=== PATIENT | female | born 1970 | race Caucasian/White ===

== ENCOUNTER → 2020-01-26 | Outpatient (CLI) | payer BC ==
[~2020-01-26] MED LIST: ANTIVERT25 MG PO; NKHM; Zofran4 MG PO
[2020-01-26 09:33] LABS: BASO % 0.3 % (0.0-1.0); EOS # 0.2 10*3/uL (0.0-0.4); EOS % 2.7 % (1.0-4.0); HEMATOCRIT 43.2 % (37.0-47.0); LYMPH % 30.2 % (27.0-41.0); MEAN CELL VOLUME 94.7 fl (81.0-99.0); MEAN CORPUSCULAR HGB 31.8 pg (27.0-31.0); MEAN CORPUSCULAR HGB CONC 33.6 g/dl (33.0-37.0); MEAN PLATELET VOLUME 10.2 fl (9.6-12.3); MONO # 0.4 10*3/uL (0.1-1.0); MONO % 5.6 % (3.0-9.0); PLATELET COUNT AUTOMATED 342 10*3/uL (130-400); RED BLOOD COUNT 4.56 10*6/uL (4.10-5.10); RED CELL DISTRI WIDTH 11.9 % (0-14.5); WHITE BLOOD COUNT 6.6 10*3/uL (4.8-10.8)
[2020-01-26 10:00] LABS: ALBUMIN 3.6 gm/dl (3.1-4.5); ALKALINE PHOSPHATASE 53 U/L (45-117); BUN 15 mg/dl (7-24); CHLORIDE 107 mmol/L (98-107); CHOLESTEROL 245 mg/dL (<200); CREATININE 0.77 mg/dL (0.55-1.02); HDL CHOLESTEROL 76 mg/dl (40-60); LDL CHOLESTEROL 150 mg/dL (9-159); POTASSIUM 3.9 mmol/L (3.5-5.1); SGOT/AST 12 IU/L (3-35); SGPT/ALT 17 U/L (12-78); SODIUM 140 mmol/L (136-145); TOTAL PROTEIN 7.6 gm/dL (6.4-8.2); TRIGLYCERIDES 96 mg/dl (<150); VLDL CHOLESTEROL 19 mg/dL (6-40)
== END | disposition home or self-care (01) ==
LOC: LAB 09:13
PROVIDERS: ATTEND Physician Assistant Medical
DX: Z00.00 Encounter for general adult medical examination without abnormal findings (principal); R51 Headache; R63.8 Other symptoms and signs concerning food and fluid intake; Z51.81 Encounter for therapeutic drug level monitoring

== ENCOUNTER → 2022-09-01 | Outpatient (CLI) | payer BC | LOC: MAMMO 08-18 15:11 | PROVIDERS: ATTEND Nurse Practitioner Women's Health | DX: N63.12 Unspecified lump in the right breast, upper inner quadrant (principal); R92.1 Mammographic calcification found on diagnostic imaging of breast ==

== ENCOUNTER → 2022-09-14 | Day surgery (SDC) | payer BC ==
[~2022-09-14] VITALS: Ht 167.6 cm; Wt 77.1 kg
[~2022-09-14] MED LIST changes: +CLARITIN10 MG PO; +KEPPRA500 MG PO; +MULTIVITAMIN WI15 MG PO; +ZESTORETIC 10-1 EACH PO
[2022-09-14 06:58] VITALS: BP 137/92
[2022-09-14 07:55] VITALS: BP 108/62
[2022-09-14 08:10] VITALS: BP 104/67
[2022-09-14 08:20] VITALS: BP 120/68
[2022-09-14 09:40] VITALS: BP 108/62
== END | disposition home or self-care (01) ==
LOC: SDC 08-27 08:00
PROVIDERS: ATTEND Surgery
DX: Z12.11 Encounter for screening for malignant neoplasm of colon (principal); K63.5 Polyp of colon; I10 Essential (primary) hypertension; E78.00 Pure hypercholesterolemia, unspecified; Z79.899 Other long term (current) drug therapy; Z98.890 Other specified postprocedural states

== ENCOUNTER 2022-11-09 12:43 | Emergency (ER) | payer BC ==
[~2022-11-09] VITALS: Ht 167.6 cm; Wt 77.1 kg
[2022-11-09 12:51] VITALS: BP 132/92
[2022-11-09] MEDS ORDERED: LIPITOR40 MG PO (12:54)
[2022-11-09 13:25] LABS: BILIRUBIN Negative (Negative); BLOOD 1+ (Negative); CLARITY Cloudy (Clear); COLOR Yellow (Yellow); GLUCOSE Negative (Negative); KETONE Negative (Negative); LEUKO ESTERASE Trace (Negative); NITRITE Negative (Negative); PH 7.5 (4.5-8.0)
[2022-11-09 13:42] LABS: BACTERIA 2+; EPITHELIAL CELLS TNTC
[2022-11-09 13:46] LABS: BASO % 0.4 % (0.0-1.0); EOS # 0.3 10*3/uL (0.0-0.4); LYMPH # 1.9 10*3/uL (1.3-4.4); LYMPH % 18.8 % (27.0-41.0); MEAN CELL VOLUME 91.3 fl (81.0-99.0); MEAN CORPUSCULAR HGB 31.1 pg (27.0-31.0); MEAN PLATELET VOLUME 10.6 fl (9.6-12.3); MONO # 0.6 10*3/uL (0.1-1.0); MONO % 5.7 % (3.0-9.0); NEUT # 7.2 10*3/uL (2.3-7.9); NEUT % 71.8 % (47.0-73.0); PLATELET COUNT AUTOMATED 313 10*3/uL (130-400); RED CELL DISTRI WIDTH 13.2 % (0-14.5); WHITE BLOOD COUNT 10.1 10*3/uL (4.8-10.8)
[2022-11-09 14:12] LABS: ALKALINE PHOSPHATASE 74 U/L (46-116); BUN 12 mg/dl (9-23); CHLORIDE 101 mmol/L (98-107); LIPASE 36 U/L (12-53); POTASSIUM 4.1 mmol/L (3.4-5.1); SGPT/ALT 18 U/L (10-49); TOTAL PROTEIN 7.6 gm/dL (6.0-8.0)
[2022-11-09] MEDS ORDERED: ONDANSETRON4 MG SL (20:53)
[2022-11-09] MEDS ORDERED: FLOMAX0.4 MG PO (20:53)
[2022-11-09] MEDS ORDERED: HYDROCODONE-AC1 EAC1 PO (20:53)
== END 2022-11-09 20:58 | disposition home or self-care (01) ==
LOC: ED 12:43
PROVIDERS: Emergency Medicine
DX: N13.2 Hydronephrosis with renal and ureteral calculous obstruction (principal); E87.20 Acidosis, unspecified; D23.9 Other benign neoplasm of skin, unspecified; R11.0 Nausea; I10 Essential (primary) hypertension; Z98.890 Other specified postprocedural states

== ENCOUNTER → 2023-08-25 | Outpatient (CLI) | payer BC ==
[~2023-08-25] MED LIST changes: +FLOMAX0.4 MG PO; +HYDROCODONE-AC1 EAC1 PO; +LIPITOR40 MG PO; +ONDANSETRON4 MG SL
[2023-08-25 11:38] LABS: BILIRUBIN Negative (Negative); BLOOD Negative (Negative); CLARITY Clear (Clear); COLOR Yellow (Yellow); GLUCOSE Negative (Negative); KETONE Negative (Negative); LEUKO ESTERASE 1+ (Negative); NITRITE Negative (Negative)
[2023-08-25 11:55] LABS: BASO % 0.5 % (0.0-1.0); EOS # 0.1 10*3/uL (0.0-0.4); EOS % 1.6 % (1.0-4.0); HEMATOCRIT 44.1 % (37.0-47.0); LYMPH # 1.4 10*3/uL (1.3-4.4); LYMPH % 22.2 % (27.0-41.0); MEAN CELL VOLUME 95.9 fl (81.0-99.0); MEAN CORPUSCULAR HGB 31.5 pg (27.0-31.0); MEAN CORPUSCULAR HGB CONC 32.9 g/dl (33.0-37.0); MEAN PLATELET VOLUME 10.8 fl (9.6-12.3); MONO # 0.4 10*3/uL (0.1-1.0); MONO % 7.1 % (3.0-9.0); NEUT # 4.2 10*3/uL (2.3-7.9); NEUT % 68.4 % (47.0-73.0); PLATELET COUNT AUTOMATED 308 10*3/uL (130-400); RED CELL DISTRI WIDTH 11.9 % (0-14.5); WHITE BLOOD COUNT 6.1 10*3/uL (4.8-10.8)
[2023-08-25 12:28] LABS: ALKALINE PHOSPHATASE 80 U/L (46-116); BUN 17 mg/dl (9-23); CHLORIDE 100 mmol/L (98-107); POTASSIUM 3.8 mmol/L (3.4-5.1); SGPT/ALT 17 U/L (5-49); TOTAL PROTEIN 7.6 gm/dL (6.0-8.0)
[2023-08-25 12:37] LABS: HYALINE CAST 0-2
[2023-08-25 12:38] LABS: BACTERIA 2+
== END | disposition home or self-care (01) ==
LOC: LAB 11:03
PROVIDERS: ATTEND Urology
DX: N20.2 Calculus of kidney with calculus of ureter (principal)

== ENCOUNTER → 2023-09-02 | Outpatient (CLI) | payer BC ==
[~2023-09-02] MED LIST changes: +IOHEXOL 350 MG/ML 100 ML VIAL IV ONE
== END | disposition home or self-care (01) ==
LOC: CT 09:41
PROVIDERS: ATTEND Urology
DX: N13.30 Unspecified hydronephrosis (principal); N83.291 Other ovarian cyst, right side

== ENCOUNTER → 2023-09-22 | Outpatient (CLI) | payer BC ==
[~2023-09-22] MED LIST changes: -IOHEXOL 350 MG/ML 100 ML VIAL IV ONE
== END | disposition home or self-care (01) ==
LOC: US 13:43
PROVIDERS: ATTEND Urology
DX: D25.9 Leiomyoma of uterus, unspecified (principal); N83.291 Other ovarian cyst, right side

== ENCOUNTER → 2025-04-12 | Outpatient (CLI) | payer BC ==
[2025-04-12 16:12] LABS: BUN 16 mg/dl (9-23); SGPT/ALT 20 U/L (5-49)
== END | disposition home or self-care (01) ==
LOC: LAB 14:38
PROVIDERS: ATTEND Obstetrics & Gynecology
DX: Z78.0 Asymptomatic menopausal state (principal)

== ENCOUNTER 2025-05-11 09:46 | Emergency (ER) | payer BC ==
[~2025-05-11] VITALS: Ht 170.1 cm; Wt 70.3 kg
[2025-05-11 10:04] VITALS: BP 158/104
[2025-05-11 11:13] LABS: BASO # 0.0 10*3/uL (0.0-0.1); BASO % 0.3 % (0.0-1.0); EOS # 0.1 10*3/uL (0.0-0.4); EOS % 0.6 % (1.0-4.0); MEAN CELL VOLUME 93.7 fl (81.0-99.0); MEAN CORPUSCULAR HGB 32.0 pg (27.0-31.0); MEAN PLATELET VOLUME 10.3 fl (9.6-12.3); MONO # 0.6 10*3/uL (0.1-1.0); MONO % 5.5 % (3.0-9.0); NEUT # 8.2 10*3/uL (2.3-7.9); NEUT % 77.9 % (47.0-73.0); NUCLEATED RED BLOOD CELL 0.0 % (0.0-0.0); NUCLEATED RED BLOOD CELL 0.0 10*3/uL (0.0-0.0); PLATELET COUNT AUTOMATED 296 10*3/uL (130-400); RED CELL DISTRI WIDTH 12.7 % (0-14.5)
[2025-05-11 11:39] LABS: BILIRUBIN Negative (Negative); BLOOD 3+ (Negative); CLARITY Cloudy (Clear); COLOR Dark Yellow (Yellow); KETONE 1+ (Negative); LEUKO ESTERASE 2+ (Negative); NITRITE Negative (Negative); PH 6.0 (4.5-8.0); SPECIFIC GRAVITY 1.025 (1.001-1.030); UROBILINOGEN 4.0 E.U./dl (0.0-1.0)
[2025-05-11 11:40] LABS: BUN 13 mg/dl (9-23); ETHYL ALCOHOL < 3.0 mg/dl (<3); SGPT/ALT 13 U/L (5-49)
[2025-05-11 11:46] LABS: URINE AMPHETAMINES Negative (1000ng/ml); URINE BARBITURATES Negative (200ng/ml); URINE BENZODIAZEPINES Negative (200ng/ml); URINE CANNABINOIDS (THC) Negative (50ng/ml); URINE COCAINE Negative (300ng/ml); URINE METHADONE Negative (300ng/ml); URINE OPIATES Negative (300ng/ml); URINE PHENCYCLIDINE Negative (25ng/ml)
[2025-05-11 12:01] LABS: BACTERIA 3+; EPITHELIAL CELLS 16-20; RBC 31-40 rbc/hpf (0-2); WBC 21-30 wbc/hpf (0-5)
[2025-05-11] MEDS ORDERED: MACROBID100 M1 PO (14:50)
[2025-05-11] MEDS ORDERED: HYDROXYZINE HCL25 MG PO (14:50)
== END 2025-05-11 15:19 | disposition home or self-care (01) ==
LOC: ED 09:46
PROVIDERS: Emergency Medicine
DX: R44.3 Hallucinations, unspecified (principal); Z78.0 Asymptomatic menopausal state; N39.0 Urinary tract infection, site not specified; I10 Essential (primary) hypertension; Z98.890 Other specified postprocedural states; Z79.899 Other long term (current) drug therapy

== ENCOUNTER 2025-05-20 23:08 | Emergency (ER) | payer BC ==
[~2025-05-20] VITALS: Wt 67.1 kg
[~2025-05-20 23:08] MED LIST changes: +HYDROXYZINE HCL25 MG PO; +MACROBID100 M1 PO
[2025-05-20 23:16] VITALS: BP 112/83
== END 2025-05-21 01:06 | disposition home or self-care (01) ==
LOC: ED 23:08
DX: F10.129 Alcohol abuse with intoxication, unspecified (principal); I10 Essential (primary) hypertension; E78.5 Hyperlipidemia, unspecified; Z98.890 Other specified postprocedural states; Y90.9 Presence of alcohol in blood, level not specified

== ENCOUNTER → 2025-05-22 | Outpatient (CLI) | payer BC | END | disposition home or self-care (01) | LOC: LAB 10:42 | PROVIDERS: ATTEND Internal Medicine | DX: G40.909 Epilepsy, unspecified, not intractable, without status epilepticus (principal) ==